=== PATIENT | female | born 1990 | race Caucasian/White ===

== ENCOUNTER 2016-08-01 15:12 | Emergency (ER) | payer OTHER ==
[2016-08-01 15:28] VITALS: BP 116/63
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
== END 2016-08-01 16:30 | disposition home or self-care (01) ==
LOC: UCEAST 15:12
DX: S16.1XXA Strain of muscle, fascia and tendon at neck level, initial encounter (principal); V49.40XA Driver injured in collision with unspecified motor vehicles in traffic accident, initial encounter; Y93.9 Activity, unspecified; Y99.9 Unspecified external cause status; F41.9 Anxiety disorder, unspecified
CPT/HCPCS: 99212; G0463